=== PATIENT | female | born 1960 | race Caucasian/White ===

== ENCOUNTER 2018-05-20 14:12 | Emergency (ER) | payer OTHER ==
--- NOTE | 2018-05-20 15:20 | RAD ---
LEFT ANKLE 3 VIEWS: Date: 05/20/18 HISTORY: Ankle pain after falling down steps. FINDINGS: There appears to be soft tissue swelling around the ankle. Calcaneal spurs are present. There are no signs of fracture or dislocation. IMPRESSION: No evidence of fracture. POS: [facility]
--- NOTE | 2018-05-20 15:21 | RAD ---
LEFT FOOT 3 VIEWS: Date: 05/20/18 HISTORY: Foot pain after injury. FINDINGS: Bones appear slightly demineralized. There are some minimal arthritic changes of the first metatarsop halangeal joint. There are calcaneal spurs present. There are arthritic changes in the tarsal bone re gion. There are no signs of fracture. IMPRESSION: No evidence of fracture. POS: [facility]
--- NOTE | 2018-05-20 15:23 | ULT ---
LEFT LOWER EXTREMITY VENOUS DUPLEX EXAM: Date: 05/20/18 HISTORY: Leg pain and edema. FINDINGS: Real-time color Doppler evaluation of the left lower extremity was performed from groin to calf. This includes evaluation of the common femoral, superficial and profunda femoral, saphenous, popliteal, a nd posterior tibial veins. This shows patent deep venous system. There is normal compressibility and augmentation. There is no evidence of deep venous thrombosis. IMPRESSION: No evidence of deep venous thrombosis of the left lower extremity. POS: [facility]
== END 2018-05-20 15:12 | disposition home or self-care (01) ==
LOC: SCSER 14:12
DX: M79.672 Pain in left foot (principal); M25.521 Pain in right elbow; E78.5 Hyperlipidemia, unspecified; I10 Essential (primary) hypertension; E11.9 Type 2 diabetes mellitus without complications; Z87.891 Personal history of nicotine dependence

== ENCOUNTER 2018-06-16 09:16 | Outpatient (CLI) | payer BC | END 2018-06-16 09:17 | disposition home or self-care (01) | LOC: BICMAMMO 09:16 | PROVIDERS: ATTEND Physician Assistant | DX: Z12.31 Encounter for screening mammogram for malignant neoplasm of breast (principal); R92.1 Mammographic calcification found on diagnostic imaging of breast; Z80.3 Family history of malignant neoplasm of breast | CPT/HCPCS: 77063; 77067 ==

== ENCOUNTER 2019-10-05 14:15 | Outpatient (CLI) | payer OTHER ==
--- NOTE | 2019-10-06 10:13 | MMO ---
Bilateral MAMMO Bilat Screen [facility]. CLINICAL HISTORY: Patient is 58 years old and is seen for screening. The patient has no personal history of cancer. VIEWS: The views performed were: bilateral craniocaudal with tomosynthesis and bilateral mediolateral oblique with tomosynthesis. FILMS COMPARED: The present examination has been compared to prior imaging studies performed at [facility] on 04/06/2015, 10/27/2015, 05/09/2017 and 06/16/2018. This study has been interpreted with the assistance of computer-aided detection. MAMMOGRAM FINDINGS: There are scattered fibroglandular densities. There are stable benign appearing calcifications seen in both breasts. There are no suspicious masses, suspicious calcifications, or new areas of architectural distortion. IMPRESSION: THERE IS NO MAMMOGRAPHIC EVIDENCE OF MALIGNANCY. A ROUTINE FOLLOW-UP MAMMOGRAM IN 1 YEAR IS RECOMMENDED. THE RESULTS OF THIS EXAM WERE SENT TO THE PATIENT. ACR BI-RADS Category 2 - Benign finding MAMMOGRAPHY NOTE: 1. A negative mammogram report should not delay a biopsy if a dominant of clinically suspicious mass is present. 2. Approximately 10% to 15% of breast cancers are not detected by mammography. 3. Adenosis and dense breasts may obscure an underlying neoplasm. Reported by: ALDA RAJAN MD Electonically Signed: [id number]
== END 2019-10-05 14:16 | disposition home or self-care (01) ==
LOC: BICMAMMO 14:15
PROVIDERS: ATTEND Nurse Practitioner Family
DX: Z12.31 Encounter for screening mammogram for malignant neoplasm of breast (principal)
CPT/HCPCS: 77063; 77067

== ENCOUNTER 2020-10-23 14:11 | Emergency (ER) | payer BC ==
--- NOTE | 2020-10-23 14:59 | ULT ---
EXAM: Right lower extremity venous Doppler HISTORY: Right leg pain extending from right hip to the ankle. FINDINGS: Grayscale, color-flow, Doppler evaluation, spectral analysis of the right lower extremity venous stru ctures is performed with 2-D imaging. The right common femoral, superficial femoral, popliteal, posterior tibial, proximal greater saphenous and profunda femoral veins are imaged. There is normal luminal compressibility, flow, and augmentation in the visualized deep venous structu res of the right lower extremity. IMPRESSION: No evidence of a deep vein thrombosis in the visualized deep venous structures right lower extremity.
[2020-10-23 15:54] LABS: Hemoglobin 14.2 g/dL (12.0-16.0); Mean Corpuscular HGB CONC 33.8 g/dL (32.0-36.0); Mean Corpuscular Hemoglobin 30.2 pg (27.0-31.0); Mean Corpuscular Volume 89.3 fL (78.0-98.0); Mean Platelet Volume 7.1 fL (7.4-10.4); Platelet Count 350 thou/uL (130-400); RBC Distribution Width 12.6 % (11.5-14.5); Red Blood Cell (RBC) Count 4.72 mill/uL (4.20-5.40); White Blood Cell (WBC) Count 22.6 thou/uL (4.8-10.8)
[2020-10-23 16:11] LABS: Band 4 % (5-11); Eosinophils 1 % (0-10); Lymphocytes 9 % (21-51); MDiff Complete? YES; Monocytes 3 % (0-10); Neutrophil 82 % (42-75); Platelet Morphology Comment Appears Adequate; RBC Morphology Normal; Reactive Lymphocytes 1 % (0-10)
[2020-10-23 16:25] LABS: ALT (SGPT) 59 U/L (8-55); AST (SGOT) 51 U/L (5-34); Albumin 4.1 g/dL (3.4-4.8); Alkaline Phosphatase 99 U/L (40-110); Anion Gap 16 mmol/L (10-20); BUN (Urea Nitrogen) 17 mg/dL (9.8-20.1); Calc. Creatinine Clearance 0 mL/min (70-130); Calcium 9.2 mg/dL (7.8-10.44); Carbon Dioxide 20 mmol/L (23-31); Chloride 104 mmol/L (98-107); Globulin 3.6 g/dL (2.4-3.5); Glucose 169 mg/dL (80-115); Protein, Total 7.7 g/dL (5.8-8.1); Sodium 136 mmol/L (136-145)
[2020-10-23] MEDS ORDERED: Ketorolac Tromethamine 30 MG/ML VIAL ONE (16:37)
[2020-10-23] MEDS ORDERED: Acetaminophen 500 MG TAB ONE (16:37)
[2020-10-23] MEDS ORDERED: Ibuprofen 800 MG TAB ONE (16:39)
[2020-10-23] MEDS ORDERED: Clindamycin/D5W 600 mg/50 ml Premix Bag ONE (16:41)
--- NOTE | 2020-10-23 17:21 | RAD ---
XR Knee Rt 4 View STANDARD: 10/23/2020 4:55 PM CLINICAL INDICATION: Trauma and right knee pain COMPARISON: None. FINDINGS: Bones: There is diffuse osteopenia. There is heterotopic ossification along the lateral aspect of th e right knee joint likely reflecting sequela remote injury. There are marginal osteophytes affecting the major compartments of the right knee. Joints: There is moderate joint capsular distention.. Soft Tissue: No acute abnormality.. IMPRESSION: No acute osseous abnormality.. Moderate joint capsular distention.
== END 2020-10-23 18:35 | disposition home or self-care (01) ==
LOC: ERS 14:11
DX: L03.115 Cellulitis of right lower limb (principal); E11.9 Type 2 diabetes mellitus without complications; E78.5 Hyperlipidemia, unspecified; I10 Essential (primary) hypertension; Z87.891 Personal history of nicotine dependence
CPT/HCPCS: 36415; 80053; 83605; 85025; 87040; 96365; 96375; J1885; J3490

== ENCOUNTER 2020-10-25 12:47 | Inpatient (IN) | payer BC ==
[2020-10-25] MEDS ORDERED: Morphine 4 MG/ML VIAL ONE ×2 (13:37→17:10)
[2020-10-25] MEDS ORDERED: Cefepime 2 GM VIAL ONE (13:38)
[2020-10-25] MEDS ORDERED: Ondansetron PF 4 MG/2 ML Vial ONE (13:38)
[2020-10-25 13:41] LABS: #Basophils 0.1 thou/uL (0.0-0.2); #Eosinphils 0.2 thou/uL (0.0-0.7); #Lymphocytes 2.2 thou/uL (1.20-3.40); #Monocytes 1.1 thou/uL (0.11-0.59); #Neutrophils 13.7 thou/uL (1.40-6.50); %Basophils 0.5 % (0.0-1.0); %Eosinophils 1.3 % (0.0-10.0); %Lymphocytes 12.5 % (21.0-51.0); %Monocytes 6.1 % (0.0-10.0); %Neutrophils 79.6 % (42.0-75.0); Mean Corpuscular HGB CONC 33.6 g/dL (32.0-36.0); Mean Corpuscular Hemoglobin 30.4 pg (27.0-31.0); Mean Corpuscular Volume 90.5 fL (78.0-98.0); Mean Platelet Volume 7.6 fL (7.4-10.4); Platelet Count 377 thou/uL (130-400); RBC Distribution Width 12.5 % (11.5-14.5); Red Blood Cell (RBC) Count 4.27 mill/uL (4.20-5.40); White Blood Cell (WBC) Count 17.3 thou/uL (4.8-10.8)
[2020-10-25] MEDS ORDERED: Vancomycin 1.5 GRAM/300 ML BAG 1.5 GM in Premix Bag 1 BAG IVPB SCH (14:00)
[2020-10-25 14:08] LABS: ALT (SGPT) 76 U/L (8-55); AST (SGOT) 39 U/L (5-34); Albumin 3.7 g/dL (3.4-4.8); Alkaline Phosphatase 107 U/L (40-110); Anion Gap 14 mmol/L (10-20); BUN (Urea Nitrogen) 16 mg/dL (9.8-20.1); Bilirubin, Total 0.6 mg/dL (0.2-1.2); Calc. Creatinine Clearance 0 mL/min (70-130); Calcium 9.6 mg/dL (7.8-10.44); Carbon Dioxide 24 mmol/L (23-31); Chloride 104 mmol/L (98-107); Globulin 3.8 g/dL (2.4-3.5); Glucose 191 mg/dL (80-115); Potassium 3.9 mmol/L (3.5-5.1); Protein, Total 7.5 g/dL (5.8-8.1); Sodium 138 mmol/L (136-145)
[2020-10-25 16:51] LABS: Lactic Acid 1.1 mmol/L (0.5-2.2)
[2020-10-25] MEDS ORDERED: Acetaminophen 325 MG TAB PO PRN (17:58)
[2020-10-25] MEDS ORDERED: HYDROcodone/Acetaminophen 5/325 mg Tablet PO PRN (17:58)
[2020-10-25] MEDS ORDERED: Dextrose 50% Abboject 50 ML SYRINGE SLOW IVP PRN (18:02)
[2020-10-25] MEDS ORDERED: Dextrose 5% in Water 1,000 ML IV PRN (18:02)
--- NOTE | 2020-10-25 20:12 | PDOC.HHP ---
Hospitalist HPI Right leg pain/swelling/redness History of Present Illness: Patient is a 60-year-old female with PMH of DM type II, HTN, HLD, and chronic leukocytosis who presents to the ED with right leg pain/swelling/redness. Fabienne ent states small redness with pain on the lateral side of her right knee started 4 days ago. The redness then spread to her leg with swelling and worsening of pain. She was seen here in the ED 2 days ago, venous Doppler done at that time showed no DVT, x-ray showed no acute osseous abnormalities, she was discharged with doxycycline. She has been compliant with her medication however symptoms did not improve. She had an episode of nausea and vomiting earlier today. She did slid on ice about a week ago but did not fell or hit her leg. Allergies/Adverse Reactions: Allergy/AdvReac Type Severity Reaction Status Date / Time albuterol [From DuoNeb] Allergy Severe Anaphylaxis Verified 10/25/20 21:30 ipratropium [From DuoNeb] Allergy Severe Anaphylaxis Verified 10/25/20 21:30 Home Medications: Medication Instructions Recorded Confirmed Type Aspirin [Ecotrin] 81 mg PO DAILY 10/25/20 10/25/20 History Fenofibric Acid (Choline) 135 mg PO DAILY 10/25/20 10/25/20 History [Fenofibric Acid] Lisinopril [Zestril] 10 mg PO DAILY 10/25/20 10/25/20 History Torsemide 20 mg PO DAILY 10/25/20 10/25/20 History metFORMIN [Glucophage] 1,000 mg PO BID-WM 10/25/20 10/25/20 History Past History: PMHx: DM type II, HTN, HLD, and chronic leukocytosis PSHx: Cholecystectomy. Left knee surgery many years ago Past social hx: She is a former smoker. She denies alcohol or drug use. Hospitalist HPI ROS Constitutional: reports: chills. denies: fever Eyes: denies: vision change ENT: denies: throat pain Respiratory: reports: shortness of breath (with leg pain) Cardiovascular: denies: chest pain Gastrointestinal: reports: nausea, vomiting. denies: diarrhea Genitourinary: denies: dysuria Musculoskeletal: reports: leg pain Skin: reports: rash Other: Negative for headache Hospitalist Exam General Appearance: NAD, awake alert Eye: PERRL ENT: moist mucosa Neck: supple Heart: RRR, no murmur Respiratory: CTAB, no wheezes, no tachypnea Gastrointestinal: soft, normal bowel sounds Extremities: no edema Skin - other findings: Erythema with warmth/tenderness on the antrior/lateral/posterior RLE Neurological: normal sensation to touch Musculoskeletal: no muscle wasting (mild decreased in strength on the RLE due to pain) Musculoskeletal - other findings: erythema on the right knee with tendenress but no effusion Psychiatric: normal affect Hospitalist Results Result Diagrams: 10/27/20 02:04 10/27/20 02:04 Lab results: Laboratory Last Values WBC 17.3 thou/uL (4.8-10.8) H 10/25/20 13:11 RBC 4.27 mill/uL (4.20-5.40) 10/25/20 13:11 Hgb 13.0 g/dL (12.0-16.0) 10/25/20 13:11 Hct 38.6 % (36.0-47.0) 10/25/20 13:11 MCV 90.5 fL (78.0-98.0) 10/25/20 13:11 MCH 30.4 pg (27.0-31.0) 10/25/20 13:11 MCHC 33.6 g/dL (32.0-36.0) 10/25/20 13:11 RDW 12.5 % (11.5-14.5) 10/25/20 13:11 Plt Count 377 thou/uL (130-400) 10/25/20 13:11 MPV 7.6 fL (7.4-10.4) 10/25/20 13:11 Neutrophils % 79.6 % (42.0-75.0) H 10/25/20 13:11 Lymphocytes % 12.5 % (21.0-51.0) L 10/25/20 13:11 Monocytes % 6.1 % (0.0-10.0) 10/25/20 13:11 Eosinophils % 1.3 % (0.0-10.0) 10/25/20 13:11 Basophils % 0.5 % (0.0-1.0) 10/25/20 13:11 Neutrophils # 13.7 thou/uL (1.40-6.50) H 10/25/20 13:11 Lymphocytes # 2.2 thou/uL (1.20-3.40) 10/25/20 13:11 Monocytes # 1.1 thou/uL (0.11-0.59) H 10/25/20 13:11 Eosinophils # 0.2 thou/uL (0.0-0.7) 10/25/20 13:11 Basophils # 0.1 thou/uL (0.0-0.2) 10/25/20 13:11 Sodium 138 mmol/L (136-145) 10/25/20 13:11 Potassium 3.9 mmol/L (3.5-5.1) 10/25/20 13:11 Chloride 104 mmol/L (98-107) 10/25/20 13:11 Carbon Dioxide 24 mmol/L (23-31) 10/25/20 13:11 Anion Gap 14 mmol/L (10-20) 10/25/20 13:11 BUN 16 mg/dL (9.8-20.1) 10/25/20 13:11 Creatinine 0.79 mg/dL (0.6-1.1) 10/25/20 13:11 Estimated GFR (MDRD) 74 10/25/20 13:11 Glucose 191 mg/dL (80-115) H 10/25/20 13:11 Lactic Acid 1.1 mmol/L (0.5-2.2) 10/25/20 16:21 Calcium 9.6 mg/dL (7.8-10.44) 10/25/20 13:11 Total Bilirubin 0.6 mg/dL (0.2-1.2) 10/25/20 13:11 AST 39 U/L (5-34) H 10/25/20 13:11 ALT 76 U/L (8-55) H 10/25/20 13:11 Alkaline Phosphatase 107 U/L (40-110) 10/25/20 13:11 Serum Total Protein 7.5 g/dL (5.8-8.1) 10/25/20 13:11 Albumin 3.7 g/dL (3.4-4.8) 10/25/20 13:11 Globulin 3.8 g/dL (2.4-3.5) H 10/25/20 13:11 Albumin/Globulin Ratio 1.0 g/dL (1.2-2.2) L 10/25/20 13:11 Hospitalist H&P A/P (1) Sepsis Code(s): A41.9 - SEPSIS, UNSPECIFIED ORGANISM Status: Acute Qualifiers: Sepsis type: sepsis due to unspecified organism Sepsis acute organ dysfunction status: without acute organ dysfunction Qualified Code(s): A41.9 - Sepsis, unspecified organism Assessment and Plan: Patient has history of chronic leukocytosis, however level today higher than her baseline but lower than the level obtained on her last ED visit for her cellulitis few days ago. Also had mild lactic acidosis which resolved with IV fluid. Likely has mild sepsis form cellulitis. Plan: -f/u blood cx -cont Vancomycin (2) Cellulitis of right leg Code(s): L03.115 - CELLULITIS OF RIGHT LOWER LIMB Status: Acute Assessment and Plan: Patient has RLE cellulitis that failed outpatient therapy. Recent venous doppler showed no DVT. She is afebrile. . Plan: -f/u blood Cx -cont Vancomycin (3) DM type 2 (diabetes mellitus, type 2) Status: Chronic Qualifiers: Diabetes mellitus rat exterminator insulin use: without rat exterminator use Diabetes mellitus complication status: without complication Qualified Code(s): E11.9 - Type 2 diabetes mellitus without complications Assessment and Plan: Plan: -SS insulin ACHS (4) HTN (hypertension) Code(s): I10 - ESSENTIAL (PRIMARY) HYPERTENSION Status: Chronic Assessment and Plan: -cont home med
[2020-10-25 20:42] LABS: SARS-CoV-2 PCR by NAA Not Detected (NotDetected)
[2020-10-25 21:01] VITALS: BMI 38.4
[2020-10-26] MEDS ORDERED: Ketorolac Tromethamine 30 MG/ML VIAL IVP SCH (00:30)
[2020-10-26] MEDS: Vancomycin 1.5 GRAM/300 ML BAG 1.5 GM in Premix Bag 1 BAG IVPB SCH ×2 (02:26→15:22)
[2020-10-26 06:23] LABS: #Basophils 0.1 thou/uL (0.0-0.2); #Eosinphils 0.5 thou/uL (0.0-0.7); #Lymphocytes 3.3 thou/uL (1.20-3.40); #Monocytes 1.3 thou/uL (0.11-0.59); %Basophils 0.9 % (0.0-1.0); %Eosinophils 3.5 % (0.0-10.0); %Lymphocytes 21.6 % (21.0-51.0); %Monocytes 8.3 % (0.0-10.0); %Neutrophils 65.6 % (42.0-75.0); Hemoglobin 10.9 g/dL (12.0-16.0); Mean Corpuscular HGB CONC 32.9 g/dL (32.0-36.0); Mean Corpuscular Hemoglobin 30.4 pg (27.0-31.0); Mean Corpuscular Volume 92.5 fL (78.0-98.0); Mean Platelet Volume 7.4 fL (7.4-10.4); Platelet Count 341 thou/uL (130-400); RBC Distribution Width 12.6 % (11.5-14.5); Red Blood Cell (RBC) Count 3.57 mill/uL (4.20-5.40); White Blood Cell (WBC) Count 15.2 thou/uL (4.8-10.8)
[2020-10-26 06:42] LABS: Anion Gap 10 mmol/L (10-20); BUN (Urea Nitrogen) 20 mg/dL (9.8-20.1); Calc. Creatinine Clearance 106 mL/min (70-130); Carbon Dioxide 24 mmol/L (23-31); Chloride 106 mmol/L (98-107); Glucose 170 mg/dL (80-115); Potassium 3.9 mmol/L (3.5-5.1); Sodium 136 mmol/L (136-145)
[2020-10-26 06:43] LABS: ALT (SGPT) 55 U/L (8-55); AST (SGOT) 25 U/L (5-34); Albumin 3.1 g/dL (3.4-4.8); Alkaline Phosphatase 92 U/L (40-110); Bilirubin, Direct 0.2 mg/dL (0.1-0.3); Bilirubin, Total 0.3 mg/dL (0.2-1.2); Protein, Total 6.1 g/dL (5.8-8.1)
[2020-10-26] MEDS: Lisinopril 10 MG TAB PO SCH (08:07)
[2020-10-26] MEDS: Enoxaparin Sodium 30 MG/0.3 ML SYRINGE SC SCH (08:07)
[2020-10-26] MEDS: traMADol HCl 50 MG TAB PO PRN ×4 (08:16→21:30)
--- NOTE | 2020-10-26 10:37 | PDOC.HOSPP ---
- Subjective Encounter Date: 10/26/20 Subjective: Patient states she still has some pain on her right leg it is better than before. Still has redness and swelling of the right leg. - Objective Vital Signs & Weight: Vital Signs (12 hours) Temp Pulse Resp BP Pulse Ox 10/26/20 08:00 94 L 10/26/20 07:55 98.0 F 67 16 112/73 94 L 10/26/20 06:26 98.1 F 67 18 104/68 92 L 10/26/20 01:18 98.8 F 81 18 112/71 93 L Weight Weight 223 lb 14.4 oz Result Diagrams: 10/27/20 02:04 10/27/20 02:04 Additional Labs: Accuchecks 10/26/20 10/25/20 06:10 21:21 POC Glucose 173 H 177 H Hospitalist ROS - Review of Systems Musculoskeletal: reports: leg pain - Medication Medications: Active Medications Generic Name Dose Route Start Last Admin Trade Name Freq PRN Reason Stop Dose Admin Enoxaparin Sodium 30 mg 10/26/20 09:00 10/26/20 08:07 Enoxaparin Sodium 30 Mg/0.3 Ml Syringe SC 30 mg 0900 FRED Administration Vancomycin HCl 1.5 gm/ Device 300 mls @ 200 mls/hr 10/26/20 03:00 10/26/20 02:26 IVPB 300 mls 0300,1500 FRED Administration Lisinopril 10 mg 10/26/20 09:00 10/26/20 08:07 Lisinopril 10 Mg Tab PO 10 mg DAILY FRED Administration Tramadol HCl 50 mg 10/25/20 23:41 10/26/20 08:16 Tramadol Hcl 50 Mg Tab PO 50 mg Q4H PRN Administration Pain Hospitalist Exam Vitals: Vital Signs (12 hours) Temp Pulse Resp BP Pulse Ox 10/26/20 08:00 94 L 10/26/20 07:55 98.0 F 67 16 112/73 94 L 10/26/20 06:26 98.1 F 67 18 104/68 92 L 10/26/20 01:18 98.8 F 81 18 112/71 93 L Weight Weight 223 lb 14.4 oz General Appearance: NAD, awake alert ENT: moist mucosa Heart: RRR, no murmur Respiratory: CTAB, no wheezes, no tachypnea Gastrointestinal: soft, non-tender, non-distended Extremities - other findings: trace edema on the LE bilaterally Skin - other findings: erythema on R leg anterior/laterar/posterior including the knee. Improving Musculoskeletal - other findings: swelling on the right lateral knee with tenderness, able to bend knee some Hosp A/P (1) Sepsis Code(s): A41.9 - SEPSIS, UNSPECIFIED ORGANISM Status: Acute Qualifiers: Sepsis type: sepsis due to unspecified organism Sepsis acute organ dysfunction status: without acute organ dysfunction Qualified Code(s): A41.9 - Sepsis, unspecified organism Plan: Due to RLE cellulites. Leukocytosis improved. No growth on blood culture. Plan: -cont Vanc (2) Cellulitis of right leg Code(s): L03.115 - CELLULITIS OF RIGHT LOWER LIMB Status: Acute Plan: Apears improving but will still require IV antibiotics. Plan: -cont Vanc -Keep RLE elevated (3) DM type 2 (diabetes mellitus, type 2) Status: Chronic Qualifiers: Diabetes mellitus watermelon inspector insulin use: without group home use Diabetes mellitus complication status: without complication Qualified Code(s): E11.9 - Type 2 diabetes mellitus without complications Plan: Plan: -SS insulin ACHS (4) HTN (hypertension) Code(s): I10 - ESSENTIAL (PRIMARY) HYPERTENSION Status: Chronic Plan: Plan: -cont Lisinopril (5) Leukocytosis Code(s): D72.829 - ELEVATED WHITE BLOOD CELL COUNT, UNSPECIFIED Status: Chronic Plan: Patient says she has hx of chronic leukocytosis and had extensive work-up previously, she says the cause is unknown. Plan: -monitor
[2020-10-26] MEDS: HumaLOG 300 UNITS/3 ML VIAL SC PRN ×3 (11:58→21:50)
[2020-10-26] MEDS: Torsemide 20 MG TAB PO SCH (12:01)
[2020-10-26] MEDS: Ondansetron PF 4 MG/2 ML Vial IVP PRN (17:09)
[2020-10-27] MEDS: Melatonin 3 MG TAB PO PRN (00:47)
[2020-10-27] MEDS: traMADol HCl 50 MG TAB PO PRN ×4 (02:04→20:22)
[2020-10-27] MEDS: Ondansetron PF 4 MG/2 ML Vial IVP PRN (02:04)
[2020-10-27 02:17] LABS: #Basophils 0.1 thou/uL (0.0-0.2); #Eosinphils 0.5 thou/uL (0.0-0.7); #Lymphocytes 2.9 thou/uL (1.20-3.40); #Neutrophils 8.5 thou/uL (1.40-6.50); %Basophils 0.9 % (0.0-1.0); %Eosinophils 4.1 % (0.0-10.0); %Lymphocytes 22.4 % (21.0-51.0); %Monocytes 7.4 % (0.0-10.0); %Neutrophils 65.3 % (42.0-75.0); Hemoglobin 10.6 g/dL (12.0-16.0); Mean Corpuscular HGB CONC 33.6 g/dL (32.0-36.0); Mean Corpuscular Hemoglobin 30.7 pg (27.0-31.0); Mean Corpuscular Volume 91.4 fL (78.0-98.0); Platelet Count 339 thou/uL (130-400); RBC Distribution Width 12.4 % (11.5-14.5); Red Blood Cell (RBC) Count 3.43 mill/uL (4.20-5.40)
[2020-10-27 02:34] LABS: Vancomycin, Trough 16.1 ug/mL
[2020-10-27 02:43] LABS: Anion Gap 14 mmol/L (10-20); BUN (Urea Nitrogen) 22 mg/dL (9.8-20.1); Calc. Creatinine Clearance 110 mL/min (70-130); Calcium 8.7 mg/dL (7.8-10.44); Carbon Dioxide 23 mmol/L (23-31); Chloride 101 mmol/L (98-107); Glucose 164 mg/dL (80-115); Potassium 3.8 mmol/L (3.5-5.1); Sodium 134 mmol/L (136-145)
[2020-10-27] MEDS: Vancomycin 1.5 GRAM/300 ML BAG 1.5 GM in Premix Bag 1 BAG IVPB SCH ×2 (03:07→14:40)
[2020-10-27] MEDS: Lisinopril 10 MG TAB PO SCH (08:32)
[2020-10-27] MEDS: Enoxaparin Sodium 30 MG/0.3 ML SYRINGE SC SCH (08:32)
[2020-10-27] MEDS: Torsemide 20 MG TAB PO SCH (08:32)
--- NOTE | 2020-10-27 08:53 | PDOC.HOSPP ---
- Subjective Encounter Date: 10/27/20 Subjective: Patient states her right leg pain, swelling and redness are better today. She still has some pain with walking. - Objective Vital Signs & Weight: Vital Signs (12 hours) Temp Pulse Resp BP BP Pulse Ox 10/27/20 08:32 109/68 10/27/20 07:35 98.4 F 68 20 109/68 95 10/27/20 06:45 98.6 F 69 18 103/65 95 Weight Weight 223 lb 14.4 oz I&O: 10/26/20 10/27/20 10/28/20 06:59 06:59 06:59 Intake Total 2320 Balance 2320 Result Diagrams: 10/27/20 02:04 10/27/20 02:04 Additional Labs: Accuchecks 10/27/20 10/26/20 10/26/20 04:16 20:58 16:30 POC Glucose 143 H 210 H 182 H 10/26/20 11:35 POC Glucose 191 H Hospitalist ROS - Review of Systems Gastrointestinal: reports: nausea. denies: vomiting Musculoskeletal: reports: leg pain - Medication Medications: Active Medications Generic Name Dose Route Start Last Admin Trade Name Freq PRN Reason Stop Dose Admin Enoxaparin Sodium 30 mg 10/26/20 09:00 10/27/20 08:32 Enoxaparin Sodium 30 Mg/0.3 Ml Syringe SC 30 mg 0900 FRED Administration Vancomycin HCl 1.5 gm/ Device 300 mls @ 200 mls/hr 10/26/20 03:00 10/27/20 03:07 IVPB 300 mls 0300,1500 FRED Administration Insulin Human Lispro 0 units 10/25/20 18:02 10/26/20 17:17 Humalog 300 Units/3 Ml Vial SC 2 units .MILD SLIDING SCALE PRN Administration Mild Correctional Scale Insulin Human Lispro 0 units 10/26/20 21:41 10/26/20 21:50 Humalog 300 Units/3 Ml Vial SC 2 unit .BEDTIME SLIDING SC PRN Administration Bedtime Correctional Scale Lisinopril 10 mg 10/26/20 09:00 10/27/20 08:32 Lisinopril 10 Mg Tab PO 10 mg DAILY FRED Administration Melatonin 3 mg 10/27/20 00:41 10/27/20 00:47 Melatonin 3 Mg Tab PO 3 mg HS PRN Administration Insomnia Ondansetron HCl 4 mg 10/25/20 17:58 10/27/20 02:04 Ondansetron Pf 4 Mg/2 Ml Vial IVP 4 mg Q6H PRN Administration Nausea/Vomiting Torsemide 20 mg 10/26/20 09:00 10/27/20 08:32 Torsemide 20 Mg Tab PO 20 mg DAILY FRED Administration Tramadol HCl 50 mg 10/25/20 23:41 10/27/20 06:39 Tramadol Hcl 50 Mg Tab PO 50 mg Q4H PRN Administration Pain Hospitalist Exam Vitals: Vital Signs (12 hours) Temp Pulse Resp BP BP Pulse Ox 10/27/20 08:32 109/68 10/27/20 07:35 98.4 F 68 20 109/68 95 10/27/20 06:45 98.6 F 69 18 103/65 95 Weight Weight 223 lb 14.4 oz General Appearance: NAD ENT: moist mucosa Heart: RRR, no murmur Respiratory: CTAB Gastrointestinal: soft, non-tender, non-distended Extremities: no edema (on the LLE, 1+ edema on the RLE, the swelling on the RLE improving) Skin - other findings: erythema on the antriolateral and posterior RLE, improving Musculoskeletal - other findings: able to bend right knee better today, swelling on the R later knee improvin Hosp A/P (1) Cellulitis of right leg Code(s): L03.115 - CELLULITIS OF RIGHT LOWER LIMB Status: Acute Plan: Improving. Still has some swelling and erythema. Plan: -cont Vanc -encouraged patient to keep RLE elevated (2) Sepsis Code(s): A41.9 - SEPSIS, UNSPECIFIED ORGANISM Status: Acute Qualifiers: Sepsis type: sepsis due to unspecified organism Sepsis acute organ dysfunction status: without acute organ dysfunction Qualified Code(s): A41.9 - Sepsis, unspecified organism Plan: resolved. Blood Cx negative so far. Plan: -treat Cellulitis as above (3) DM type 2 (diabetes mellitus, type 2) Status: Chronic Qualifiers: Diabetes mellitus rodent exterminator insulin use: without fdc use Diabetes mellitus complication status: without complication Qualified Code(s): E11.9 - Type 2 diabetes mellitus without complications Plan: Plan: -SS insulin ACHS (4) HTN (hypertension) Code(s): I10 - ESSENTIAL (PRIMARY) HYPERTENSION Status: Chronic Plan: Plan: -cont home med (5) Leukocytosis Code(s): D72.829 - ELEVATED WHITE BLOOD CELL COUNT, UNSPECIFIED Status: Chronic Plan: Chronic, currently level is around baseline. She reports previous extensive work up. Plan: -monitor
[2020-10-27] MEDS: HumaLOG 300 UNITS/3 ML VIAL SC PRN (11:32)
[2020-10-28] MEDS: traMADol HCl 50 MG TAB PO PRN ×4 (00:19→21:05)
[2020-10-28] MEDS: Vancomycin 1.5 GRAM/300 ML BAG 1.5 GM in Premix Bag 1 BAG IVPB SCH ×2 (02:14→14:44)
[2020-10-28] MEDS: Melatonin 3 MG TAB PO PRN (02:14)
[2020-10-28 06:51] LABS: #Basophils 0.1 thou/uL (0.0-0.2); #Eosinphils 0.5 thou/uL (0.0-0.7); #Lymphocytes 2.3 thou/uL (1.20-3.40); #Monocytes 1.1 thou/uL (0.11-0.59); #Neutrophils 6.9 thou/uL (1.40-6.50); %Basophils 0.7 % (0.0-1.0); %Eosinophils 4.6 % (0.0-10.0); %Lymphocytes 21.2 % (21.0-51.0); %Monocytes 10.1 % (0.0-10.0); %Neutrophils 63.4 % (42.0-75.0); Hemoglobin 10.2 g/dL (12.0-16.0); Mean Corpuscular HGB CONC 32.9 g/dL (32.0-36.0); Mean Corpuscular Hemoglobin 29.9 pg (27.0-31.0); Mean Corpuscular Volume 90.9 fL (78.0-98.0); Mean Platelet Volume 7.1 fL (7.4-10.4); Platelet Count 362 thou/uL (130-400); RBC Distribution Width 12.2 % (11.5-14.5); Red Blood Cell (RBC) Count 3.39 mill/uL (4.20-5.40); White Blood Cell (WBC) Count 10.9 thou/uL (4.8-10.8)
[2020-10-28 07:06] LABS: Anion Gap 13 mmol/L (10-20); BUN (Urea Nitrogen) 19 mg/dL (9.8-20.1); Calc. Creatinine Clearance 111 mL/min (70-130); Calcium 8.4 mg/dL (7.8-10.44); Carbon Dioxide 27 mmol/L (23-31); Chloride 99 mmol/L (98-107); Glucose 139 mg/dL (80-115); Sodium 135 mmol/L (136-145)
[2020-10-28] MEDS: Lisinopril 10 MG TAB PO SCH (09:00)
[2020-10-28] MEDS: Torsemide 20 MG TAB PO SCH (09:00)
[2020-10-28] MEDS: Enoxaparin Sodium 30 MG/0.3 ML SYRINGE SC SCH (09:01)
[2020-10-28] MEDS ORDERED: CEFAZOLIN 1 GM in Sodium Chloride 0.9% 100 ML IVPB SCH (10:09)
[2020-10-28] MEDS: HumaLOG 300 UNITS/3 ML VIAL SC PRN ×3 (11:43→22:19)
[2020-10-28] MEDS: ceFAZolin 1 GM/D5W 1 GM in Premix Bag 1 BAG IVPB SCH ×2 (13:41→21:11)
[2020-10-28 14:27] LABS: Vancomycin, Trough 20.2 ug/mL
[2020-10-28] MEDS ORDERED: VANCOMYCIN 1.25 GM/250 ML BAG 1.25 GM in Premix Bag 1 BAG IVPB SCH (15:00)
--- NOTE | 2020-10-28 18:28 | PDOC.HOSPP ---
- Subjective Encounter Date: 10/28/20 Encounter Time: 09:30 Subjective: F/u: cellulitis The patient states her RLE pain has improved and she is now able to ambulate, which she could not do before. Her pain is about a 7 when she walks. She has not seen any open wounds, is not sure how she got the cellulitis. She states she failed outpatient doxycycline for two days prior to admission - Objective Vital Signs & Weight: Vital Signs (12 hours) Temp Pulse Resp BP BP Pulse Ox 10/28/20 12:00 98.3 F 67 18 115/74 94 L 10/28/20 09:00 126/70 10/28/20 08:00 98.2 F 10/28/20 07:00 98.2 F 64 20 126/70 92 L Weight Weight 223 lb 14.4 oz I&O: 10/27/20 10/28/20 10/29/20 06:59 06:59 06:59 Intake Total 2320 1850 480 Balance 2320 1850 480 Result Diagrams: 10/28/20 05:51 10/28/20 05:51 Additional Labs: Accuchecks 10/28/20 10/28/20 10/28/20 16:21 11:40 05:03 POC Glucose 167 H 206 H 146 H 10/28/20 00:01 POC Glucose 190 H Hospitalist ROS - Medication Medications: Active Medications Generic Name Dose Route Start Last Admin Trade Name Freq PRN Reason Stop Dose Admin Enoxaparin Sodium 30 mg 10/26/20 09:00 10/28/20 09:01 Enoxaparin Sodium 30 Mg/0.3 Ml Syringe SC 30 mg 0900 FRED Administration Cefazolin Sodium/Dextrose 1 gm 50 mls @ 100 mls/hr 10/28/20 14:00 10/28/20 13:41 / Device IVPB 50 mls Q8HR FRED Administration Insulin Human Lispro 0 units 10/25/20 18:02 10/28/20 17:20 Humalog 300 Units/3 Ml Vial SC 2 units .MILD SLIDING SCALE PRN Administration Mild Correctional Scale Insulin Human Lispro 0 units 10/26/20 21:41 10/26/20 21:50 Humalog 300 Units/3 Ml Vial SC 2 unit .BEDTIME SLIDING SC PRN Administration Bedtime Correctional Scale Lisinopril 10 mg 10/26/20 09:00 10/28/20 09:00 Lisinopril 10 Mg Tab PO 10 mg DAILY FRED Administration Melatonin 3 mg 10/27/20 00:41 10/28/20 02:14 Melatonin 3 Mg Tab PO 3 mg HS PRN Administration Insomnia Ondansetron HCl 4 mg 10/25/20 17:58 10/27/20 02:04 Ondansetron Pf 4 Mg/2 Ml Vial IVP 4 mg Q6H PRN Administration Nausea/Vomiting Torsemide 20 mg 10/26/20 09:00 10/28/20 09:00 Torsemide 20 Mg Tab PO 20 mg DAILY FRED Administration Tramadol HCl 50 mg 10/25/20 23:41 10/28/20 17:20 Tramadol Hcl 50 Mg Tab PO 50 mg Q4H PRN Administration Pain Hospitalist Exam Vitals: Vital Signs (12 hours) Temp Pulse Resp BP BP Pulse Ox 10/28/20 12:00 98.3 F 67 18 115/74 94 L 10/28/20 09:00 126/70 10/28/20 08:00 98.2 F 10/28/20 07:00 98.2 F 64 20 126/70 92 L Weight Weight 223 lb 14.4 oz General Appearance: NAD, awake alert Eye: PERRL, anicteric sclera ENT: normocephalic atraumatic, no oropharyngeal lesions Neck: no JVD Heart: RRR, no murmur, no gallops, no rubs Respiratory: CTAB, no wheezes, no rales, no ronchi Gastrointestinal: soft, non-tender, non-distended, normal bowel sounds Extremities: no cyanosis, no clubbing, no edema Extremities - other findings: right calf edema with mild erythema, warmth and tenderness Skin: normal turgor, no lesions, no rashes Neurological: cranial nerve grossly intact, normal sensation to touch, no focal deficits, no new deficit Hosp A/P - Plan This is a 60 year old female who presented to the hospital with RLE cellulitis Cellulitis of RLE - continue IV vanc, WBC is down to 10.9. Will add IV cefazolin. If does well, will switch to oral antibiotic tomorrow Anemia - Hb stable, will monitor Type II diabetes - on metformin as an outpatient, continue sliding scale Hypertension - continue lisinopril, torsemide q2 days
[2020-10-29] MEDS ORDERED: VANCOMYCIN 1.25 GM/250 ML BAG 1.25 GM in Premix Bag 1 BAG IVPB SCH (03:00)
[2020-10-29] MEDS: traMADol HCl 50 MG TAB PO PRN (05:18)
[2020-10-29] MEDS: ceFAZolin 1 GM/D5W 1 GM in Premix Bag 1 BAG IVPB SCH (05:21)
[2020-10-29 06:09] LABS: Hemoglobin 10.9 g/dL (12.0-16.0); Mean Corpuscular HGB CONC 33.9 g/dL (32.0-36.0); Mean Corpuscular Hemoglobin 30.5 pg (27.0-31.0); Mean Platelet Volume 7.1 fL (7.4-10.4); Platelet Count 363 thou/uL (130-400); RBC Distribution Width 12.2 % (11.5-14.5); Red Blood Cell (RBC) Count 3.56 mill/uL (4.20-5.40); White Blood Cell (WBC) Count 9.1 thou/uL (4.8-10.8)
[2020-10-29] MEDS: HumaLOG 300 UNITS/3 ML VIAL SC PRN (06:22)
[2020-10-29 06:37] LABS: Anion Gap 12 mmol/L (10-20); BUN (Urea Nitrogen) 18 mg/dL (9.8-20.1); Calc. Creatinine Clearance 118 mL/min (70-130); Calcium 8.4 mg/dL (7.8-10.44); Carbon Dioxide 28 mmol/L (23-31); Chloride 100 mmol/L (98-107); Glucose 159 mg/dL (80-115); Potassium 3.6 mmol/L (3.5-5.1); Sodium 136 mmol/L (136-145)
[2020-10-29 08:08] VITALS: TEMP 98
[2020-10-29] MEDS: Torsemide 20 MG TAB PO SCH (08:32)
[2020-10-29] MEDS: Lisinopril 10 MG TAB PO SCH (08:32)
[2020-10-29] MEDS: Enoxaparin Sodium 30 MG/0.3 ML SYRINGE SC SCH (08:32)
[2020-10-29 08:34] VITALS: BP 126/70
[2020-10-29] MEDS ORDERED: Cephalexin 250 MG CAP PO SCH (12:00)
--- NOTE | 2020-10-29 18:05 | PDOC.DS.DS ---
Provider Date of Admission: 10/25/20 14:53 Date of Discharge: 10/29/20 Admitting Provider: Aaron Snyder MD Primary Care Physician: Unknown Course Hospital Course: Discharge Diagnoses: 1. RLE cellulitis 2. Anemia 3. Type II diabetes 4. Hypertension Brief HPI: This is a 60-year-old female with a past medical history of diabetes, hypertension presented to emergency room with worsening cellulitis of right lower extremity. She states that she failed doxycycline as an outpatient. She denied any open wounds or cuts. She denied any fevers but was nauseous. She was started on IV vancomycin admitted for further work-up. Hospital Course: Patient was started on IV vancomycin. Her leukocytosis went from 19.3-9.1. She started on cefazolin on 10/28 with additional improvement in her swelling. No purulent drainage or abscess was notable. She did have significant improvement in her swelling and only had a mild amount of erythema in her monteiro area. She was discharged with Keflex and Bactrim for 1 week. She was advised to keep her leg elevated and her improvement will be gradual. She can return to work as the patient tolerates. She should follow-up with her PCP in a week. Pertinent Studies: Vascular US: no DVT Knee X ray: moderate capsular joint distension Resuscitation Status: 10/25/20 17:58 Resuscitation Status Routine Resuscitation Status: FULL: Full Resuscitation Discussed with: Rj Lab Results: 10/29/20 05:28 10/29/20 05:28 Abnormal Lab Results - Last 48 hrs 10/28/20 05:51: Sodium 135 L 10/28/20 05:51: WBC 10.9 H, RBC 3.39 L, Hgb 10.2 L, Hct 30.8 L, MPV 7.1 L, Monocytes % 10.1 H, Neutrophils # 6.9 H, Monocytes # 1.1 H 10/29/20 05:28: RBC 3.56 L, Hgb 10.9 L, Hct 32.0 L, MPV 7.1 L Microbiology - Entire Visit 10/25/20 13:11 Venous blood - Right Hand Blood Culture - Preliminary NO GROWTH AT 48 HOURS 10/25/20 13:50 Venous blood - Right Hand Blood Culture - Preliminary NO GROWTH AT 48 HOURS Vitals: Vital Signs (12 hours) Temp Pulse Resp BP BP Pulse Ox 10/29/20 08:32 126/70 10/29/20 08:00 98.0 F 68 16 148/74 H 93 L Weight Weight 223 lb 14.4 oz Physical Exam: The patient was seen and examined on the day of discharge. General Appearance: NAD, awake alert Eye: PERRL, anicteric sclera ENT: normocephalic atraumatic, no oropharyngeal lesions Neck: no JVD Respiratory: CTAB, no wheezes, no rales, no ronchi Cardiovascular: RRR, no murmur, no gallops, no rubs Gastrointestinal: soft, non-tender, non-distended, normal bowel sounds Extremities: no cyanosis, no clubbing, 1+ LE edema Extremities - other findings: RLE swelling with erythema near the monteiro, mild tender. Swelling improved Skin: normal turgor, no lesions, no rashes Neurological: cranial nerve grossly intact, normal sensation to touch, no focal deficits, no new deficit Musculoskeletal: normal tone, normal strength, no muscle wasting PSYCH: normal affect, normal behavior, A&O x 3 Plan Prescriptions: Sulfamethoxazole/Trimethoprim [Bactrim Ds Tablet] 1 each PO BID #14 tablet Cephalexin 500 mg PO Q12H #14 capsule Fluconazole 150 mg PO ONE #1 tablet Home Medications: Medication Instructions Recorded Confirmed Type Aspirin [Ecotrin Low Strength] 81 mg PO DAILY 10/25/20 10/25/20 History Fenofibric Acid (Choline) 135 mg PO DAILY 10/25/20 10/25/20 History [Fenofibric Acid] Torsemide 20 mg PO DAILY 10/25/20 10/25/20 History metFORMIN [Glucophage] 1,000 mg PO BID- 10/25/20 10/25/20 History Cephalexin 500 mg PO Q12H #14 capsule 10/29/20 Rx Fluconazole 150 mg PO ONE #1 tablet 10/29/20 Rx Sulfamethoxazole/Trimethoprim 1 each PO BID #14 tablet 10/29/20 Rx [Bactrim Ds Tablet] Allergies: albuterol [From DuoNeb] Allergy (Severe, Verified 10/25/20 21:30) Anaphylaxis ipratropium [From DuoNeb] Allergy (Severe, Verified 10/25/20 21:30) Anaphylaxis Activity:: Activity as Tolerated Nourishment:: Heart Healthy Diet Referrals: Unknown,Unknown [Primary Care Provider] - Disposition: HOME Quality CORE MEASURES:: N/A
== END 2020-10-29 11:44 | disposition home or self-care (01) | DRG 872 ==
LOC: ERS 12:47 → ERHOLD 14:53 → T4-B 20:30
PROVIDERS: ADMIT Internal Medicine; ATTEND Internal Medicine
DX: A41.9 Sepsis, unspecified organism (principal); L03.115 Cellulitis of right lower limb; E87.2 Acidosis; D64.9 Anemia, unspecified; R65.20 Severe sepsis without septic shock; E78.5 Hyperlipidemia, unspecified; E78.00 Pure hypercholesterolemia, unspecified; I10 Essential (primary) hypertension; E11.9 Type 2 diabetes mellitus without complications; E66.9 Obesity, unspecified; Z90.49 Acquired absence of other specified parts of digestive tract; Z98.890 Other specified postprocedural states; Z87.891 Personal history of nicotine dependence; Z88.8 Allergy status to other drugs, medicaments and biological substances; Z79.899 Other long term (current) drug therapy; Z79.82 Long term (current) use of aspirin; Z20.822 Contact with and (suspected) exposure to COVID-19
CPT/HCPCS: 36415; 36416; 80048; 80053; 80076; 80202; 83605; 85025; 85027; 87040; 87635; 96365; 96367; 96375; 96376; J0690; J0692; J1650; J1815; J1885; J2270; J2405; J3370; J3490; U0003; U0005

== ENCOUNTER 2020-12-25 09:43 | Outpatient (CLI) | payer BC | END 2020-12-25 09:44 | disposition home or self-care (01) | LOC: BICMAMMO 09:43 | PROVIDERS: ATTEND Nurse Practitioner Family | DX: Z12.31 Encounter for screening mammogram for malignant neoplasm of breast (principal) | CPT/HCPCS: 77063; 77067 ==

== ENCOUNTER 2021-06-29 15:16 | Outpatient (CLI) | payer OTHER | END 2021-06-29 15:17 | disposition home or self-care (01) | LOC: BICMRI 15:16 | PROVIDERS: ATTEND Nurse Practitioner Family | DX: S86.911D Strain of unspecified muscle(s) and tendon(s) at lower leg level, right leg, subsequent encounter (principal); S82.101A Unspecified fracture of upper end of right tibia, initial encounter for closed fracture; S83.241A Other tear of medial meniscus, current injury, right knee, initial encounter ==

== ENCOUNTER 2022-09-23 14:32 | Outpatient (CLI) | payer BC | END 2022-09-23 14:33 | disposition home or self-care (01) | LOC: BICMAMMO 14:32 | PROVIDERS: ATTEND Nurse Practitioner Family | DX: Z12.31 Encounter for screening mammogram for malignant neoplasm of breast (principal); M81.0 Age-related osteoporosis without current pathological fracture; M85.88 Other specified disorders of bone density and structure, other site | CPT/HCPCS: 77063; 77067; 77080 ==